=== PATIENT | male | born 2000 | race Caucasian/White ===

== ENCOUNTER 2021-05-09 14:41 | Emergency (ER) | payer OTHER ==
[~2021-05-09] VITALS: Ht 188 cm; Wt 69.5 kg
[2021-05-09] MEDS ORDERED: PROZ40CA PO (15:02)
[2021-05-09] MEDS ORDERED: CIPR-249 PO (15:02)
[2021-05-09] MEDS ORDERED: ZYPR15TA PO (15:02)
[2021-05-09] MEDS ORDERED: FLAG500T PO (15:02)
[2021-05-09] MEDS ORDERED: WELLTAB40 PO (15:02)
[2021-05-09 16:39] LABS: HEMATOCRIT 47.2 % (42.0-52.0); HEMOGLOBIN 15.1 g/dl (13.5-17.5); MEAN CORPUSCULAR HEMOGLOBIN 28.3 pg (27.0-33.0); MEAN CORPUSCULAR VOLUME 88.6 fl (80.0-96.0); PLATELET COUNT, AUTOMATED 310 10^3/uL (150-450); RED BLOOD COUNT 5.33 10^6/uL (4.30-6.10); WHITE BLOOD COUNT 7.1 10^3/uL (4.0-10.0)
[2021-05-09 16:55] LABS: BLOOD UREA NITROGEN 9 MG/DL (7-18); CALCIUM LEVEL 9.6 MG/DL (8.5-10.1); CARBON DIOXIDE LEVEL 30 MEQ/L (21-32); CHLORIDE LEVEL 105 MEQ/L (98-107); CREATININE FOR GFR 0.99 MG/DL (0.70-1.30); GLOMERULAR FILTRATION RATE > 60.0 (>60); GLUCOSE, FASTING 99 MG/DL (70-100); POTASSIUM SERUM 4.5 MEQ/L (3.5-5.1); SODIUM LEVEL 139 MEQ/L (136-145)
[2021-05-09 19:55] VITALS: BP 121/73
== END 2021-05-09 19:56 | disposition home or self-care (01) ==
LOC: M ED 14:41
DX: K62.89 Other specified diseases of anus and rectum (principal); K50.90 Crohn's disease, unspecified, without complications